=== PATIENT | female | born 2000 | race Two or more races ===

== ENCOUNTER → 2019-10-24 | Outpatient (CLI) | payer OTHER | END | disposition home or self-care (01) | LOC: PRENATAL 10:34 | PROVIDERS: ATTEND Specialist | DX: O35.3XX1 Maternal care for (suspected) damage to fetus from viral disease in mother, fetus 1 (principal) ==

== ENCOUNTER 2020-02-17 05:52 | Inpatient (IN) | payer OTHER ==
[~2020-02-17] VITALS: Ht 167.6 cm; Wt 3.2 kg
[2020-02-17] MEDS ORDERED: VALTREX1000 MG PO (07:10)
[2020-02-17] MEDS ORDERED: PRENATAL TABLE1 EAC1 PO (07:10)
[2020-02-20] MEDS ORDERED: IBU800 MG PO (08:54)
== END 2020-02-20 16:03 | DRG 788 ==
LOC: LDR 05:52 → O/R 18:46 → SURG 20:39 → O/R 20:59 → OB/GYN 02-18 01:05
PROVIDERS: ADMIT Specialist; ATTEND Specialist
PROC: 4A1HXCZ Monitoring of Products of Conception, Cardiac Rate, External Approach (ICD-10-PCS; 2020-02-17)
PROC: 10D00Z1 Extraction of Products of Conception, Low, Open Approach (ICD-10-PCS; principal; 2020-02-17 17:00)
DX: O62.1 Secondary uterine inertia (principal); O76 Abnormality in fetal heart rate and rhythm complicating labor and delivery; Z3A.40 40 weeks gestation of pregnancy; Z37.0 Single live birth; Z20.828 Contact with and (suspected) exposure to other viral communicable diseases